=== PATIENT | male | born 1965 | race Two or more races ===

== ENCOUNTER 2017-04-25 01:12 | Emergency (ER) | payer BC, OTHER ==
[2017-04-25] MEDS ORDERED: HYDROCODONE/ACETAMINOPHEN 5-325 MG 6 TAB/DSPK PO PRN (02:40)
--- NOTE | 2017-04-25 02:45 | ER Document Report ---
HPI - HPI Patient complains to provider of: lower back pain Pain Level: 4 Context: Patient is a 51 year old male that comes to the ED for chief complaint of pain in his lower back, worse on the right side with some radiation into his right leg. He states he was picking up a laundry basket when he felt like he pulled something, he states the area is very tight, he states that it is worse sitting down and lying down and he cannot get comfortable. He states she has not slept well for 3 days. Symptoms have been going on for 1 week. He denies any impact injury, focal numbness or weakness that is new (she has some neuropathy with his type 2 diabetes), denies bowel or bladder changes, denies history of IV drug abuse. He states he saw urgent care and they gave him a shot of Toradol and placed him on Robaxin but this has not helped. He denies any surgeries on his back. He denies any other symptoms. - DERM Skin Color: Normal, [place] Past Medical History - General Information source: Patient - Social History Smoking Status: Never Smoker Frequency of alcohol use: Occasional Drug Abuse: None Lives with: Family Family History: Malignancy Patient has suicidal ideation: No Patient has homicidal ideation: No - Past Medical History Cardiac Medical History: Reports: Hx Hypercholesterolemia, Hx Hypertension Renal/ Medical History: Denies: Hx Peritoneal Dialysis GI Medical History: Reports: Hx Gastroesophageal Reflux Disease Past Surgical History: Reports: Hx Herniorrhaphy - Immunizations Hx Diphtheria, Pertussis, Tetanus Vaccination: Yes Hx Pneumococcal Vaccination: 08/06/13 Vertical Provider Document - CONSTITUTIONAL General Appearance: Mild Distress - Patient stands instead of sitting, appears mildly uncomfortable - INFECTION CONTROL TRAVEL OUTSIDE OF THE [place] IN LAST 30 DAYS: No - HEENT HEENT: Atraumatic, Normocephalic - NECK Neck: Normal Inspection - RESPIRATORY Respiratory: Breath Sounds Normal, No Respiratory Distress O2 Sat by Pulse Oximetry: 98 - CARDIOVASCULAR Cardiovascular: Regular Rate, Regular Rhythm - GI/ABDOMEN Gastrointestinal: Abdomen Soft, Abdomen Non-Tender - BACK Back: negative: Normal Inspection - Tenderness over the right paralumbar musculature extending down toward the gluteal musculature, otherwise normal back exam with no midline tenderness, no saddle anesthesia, normal distal neurovascular exam - MUSCULOSKELETAL/EXTREMETIES Musculoskeletal/Extremeties: MARIAELENA FROM, Non-Tender Course - Re-evaluation Re-evalutation: Patient with tight right lumbar and gluteal musculature, has tightness in the thigh, no heat, induration, swelling, or other abnormalities noted. No impact injury. No neurological deficits. Treating symptomatically, discussed orthopedic follow-up and return precautions, patient states understanding and agreement. Patient hypertensive, he states that he will follow-up and have this rechecked when his symptoms are better. - Vital Signs Vital signs: Temp Pulse Resp BP Pulse Ox 98.2 F 101 H 16 171/87 H 98 04/25/17 01:16 04/25/17 01:16 04/25/17 01:16 04/25/17 01:16 04/25/17 01:16 Discharge - Discharge Clinical Impression: Lower back pain Qualifiers: Chronicity: acute Back pain laterality: right Sciatica presence: without sciatica Qualified Code(s): M54.5 - Low back pain Condition: Stable Disposition: HOME, SELF-CARE Additional Instructions: Examination is consistent with musculoskeletal injury and appears to show muscle spasm. Take the medication as prescribed, stop the methocarbamol, apply heat to her lower back, and rest. Follow-up with primary care for additional management. Return to emergency department for any concerning or worsening symptoms including developing numbness, loss of bowel or bladder control, severe pain, fever, etc. Prescriptions: Diazepam [Valium 5 mg Tablet] 1 - 2 tab PO TID #20 tablet Forms: Return to Work
[2017-04-25 03:16] VITALS: BP 170/90
== END 2017-04-25 03:14 | disposition home or self-care (01) ==
LOC: ER 01:12
DX: M54.5 Low back pain (principal); E11.40 Type 2 diabetes mellitus with diabetic neuropathy, unspecified; I10 Essential (primary) hypertension
CPT/HCPCS: 99283